=== PATIENT | female | born 1995 | race Caucasian/White ===

== ENCOUNTER 2020-09-25 16:19 | Emergency (ER) | payer MEDICAID ==
[~2020-09-25] VITALS: Ht 167.6 cm; Wt 82.0 kg
[2020-09-25] MEDS ORDERED: ONDANSETRON HCL 4MG/2ML INJ IV ONE (17:45)
[2020-09-25 17:54] LABS: CHLORIDE 108 mEq/L (98-107)
[2020-09-25] MEDS ORDERED: POTASSIUM CHLORIDE 20MEQ TABLET SR PO ONE (18:15)
[2020-09-25] MEDS ORDERED: ONDA4TAB5 MT (21:11)
[2020-09-25 21:46] VITALS: BP 111/74
== END 2020-09-25 22:00 | disposition home or self-care (01) ==
LOC: ER 16:19
DX: O21.8 Other vomiting complicating pregnancy (principal); Z3A.01 Less than 8 weeks gestation of pregnancy; E87.6 Hypokalemia
CPT/HCPCS: 36415; 80048; 93005; 96374; 99285; J2405